=== PATIENT | male | born 1945 | race Caucasian/White ===

== ENCOUNTER → 2018-03-23 | Outpatient (CLI) | payer MEDICARE ==
--- NOTE | 2018-03-23 19:37 | US ---
EXAMINATION TYPE: US venous doppler duplex LE LT DATE OF EXAM: 03/23/2018 7:20 PM COMPARISON: NONE CLINICAL HISTORY: M79.605 pain in left lower limb. Left leg pain. SIDE PERFORMED: Left TECHNIQUE: The lower extremity deep venous system is examined utilizing real time linear array sonog suhas with graded compression, doppler sonography and color-flow sonography. VESSELS IMAGED: External Iliac Vein (EIV) Common Femoral Vein Deep Femoral Vein Greater Saphenous Vein * Femoral Vein Popliteal Vein Small Saphenous Vein * Proximal Calf Veins (* superficial vessels) Left Leg: Negative for DVT Grayscale, color doppler, spectral doppler imaging performed of the deep veins of the left lower extr emity. There is normal flow, compressibility, vascular waveforms. IMPRESSION: No ultrasound evidence for acute DVT in the left lower extremity.
== END | disposition home or self-care (01) ==
LOC: RADUSMAIN 18:52
PROVIDERS: ATTEND Family Medicine
DX: M79.605 Pain in left leg (principal)

== ENCOUNTER 2021-09-09 03:56 | Observation (INO) | payer MEDICARE ==
--- NOTE | 2021-09-09 05:01 | XR ---
EXAMINATION TYPE: XR pelvis AP view DATE OF EXAM: 09/09/2021 COMPARISON: NONE HISTORY: Foreign body TECHNIQUE: Single view FINDINGS: There is a thin long metal wire projects over the penis and scrotum. There is an arrowhead-shaped 3.7 cm foreign body projected over the penile urethra. Proximal femurs and hip joints are intact. There is narrowing of the left hip joint space. IMPRESSION: There is a wire foreign body projected over the penis and scrotum. There is arrow head me tallic foreign body projected over the penis.
[2021-09-09] MEDS ORDERED: MORPHINE SULFATE 4 MG/ML SYRINGE IV PRN (06:12)
[2021-09-09] MEDS ORDERED: NALOXONE 0.4 MG/ML 1 ML VIAL IV PRN (06:12)
[2021-09-09] MEDS: SODIUM CHLORIDE 0.9% 1,000 ML IV SCH ×2 (06:28→20:40)
--- NOTE | 2021-09-09 08:21 | ED ---
Male Urogenital HPI - General Chief complaint: Urogenital Stated complaint: Foreign Object in Penis Time Seen by Provider: 09/09/21 04:01 Source: patient Mode of arrival: ambulatory - History of Present Illness Initial comments: This patient is a 76-year-old man who presents to have evaluation for foreign body in the urethra. The patient states that he had placed a saw blade into his urethra and then was unable to retrieve it. States that this occurred probably about 6 hours prior to his arrival here. He states that he did try to retrieve a couple times and then when not able to he presented here. Complaint: other -: hour(s) Location: penis Radiation: none Severity: mild Quality: sharp Improves with: none Worsens with: none - Related Data Home Medications Medication Instructions Recorded Confirmed Artificial Tears-Hypromellose 2 drops BOTH EYES QID PRN 09/09/21 09/09/21 [Artificial Tear Drops] Aspirin EC [Ecotrin Low Dose] 81 mg PO DAILY 09/09/21 09/09/21 Baclofen [Lioresal] 10 mg PO BID PRN 09/09/21 09/09/21 Bimatoprost [Lumigan .01% Ophth 1 drop BOTH EYES HS 09/09/21 09/09/21 Soln] Brimonidine Tartrate [Alphagan P 2 drops BOTH EYES Q8H 09/09/21 09/09/21 0.1% Ophth Soln] Fish Oil/Dha/Epa [Fish Oil 1,200 1 cap PO DAILY 09/09/21 09/09/21 mg Fish Oil] Glucosamine Sulfate 1,500 mg PO DAILY 09/09/21 09/09/21 Ketoconazole 2% Shampoo [Nizoral] 1 applic TOPICAL Q72H PRN 09/09/21 09/09/21 Multivitamins, Thera [Multivitamin 1 tab PO DAILY 09/09/21 09/09/21 (formulary)] Nitroglycerin Sl Tabs [Nitrostat] 0.4 mg SL Q5M PRN 09/09/21 09/09/21 Omeprazole 20 mg PO DAILY 09/09/21 09/09/21 Pravastatin Sodium [Pravachol] 40 mg PO HS 09/09/21 09/09/21 Turmeric Root Extract [Turmeric] 500 mg PO DAILY 09/09/21 09/09/21 buPROPion HCL [Wellbutrin XL] 300 mg PO DAILY 09/09/21 09/09/21 clonazePAM [KlonoPIN] 0.5 mg PO HS 09/09/21 09/09/21 Allergies Allergy/AdvReac Type Severity Reaction Status Date / Time acetaminophen AdvReac Rash/Hives Verified 09/09/21 09:10 [From Tylenol-Codeine #3] codeine AdvReac Rash/Hives Verified 09/09/21 09:10 [From Tylenol-Codeine #3] Review of Systems ROS Statement: Those systems with pertinent positive or pertinent negative responses have been documented in the HPI. ROS Other: All systems not noted in ROS Statement are negative. Constitutional: Denies: fever, chills Respiratory: Denies: cough, dyspnea Cardiovascular: Denies: chest pain, palpitations Gastrointestinal: Denies: abdominal pain Genitourinary: Reports: as per HPI. Denies: testicular pain Skin: Denies: rash Past Medical History Past Medical History: CVA/TIA Additional Past Medical History / Comment(s): "narrowing of blood vessels", CVA prior to 2019 History of Any Multi-Drug Resistant Organisms: None Reported Past Surgical History: Coronary Bypass/CABG Additional Past Surgical History / Comment(s): bypass 2012 Past Psychological History: No Psychological Hx Reported Smoking Status: Never smoker Past Alcohol Use History: None Reported Past Drug Use History: None Reported General Exam General appearance: alert, in no apparent distress Head exam: Present: atraumatic, normocephalic Eye exam: Present: normal appearance. Absent: scleral icterus, conjunctival injection ENT exam: Present: normal oropharynx Neck exam: Present: normal inspection Respiratory exam: Present: normal lung sounds bilaterally. Absent: respiratory distress, wheezes, rales, rhonchi, stridor Cardiovascular Exam: Present: regular rate, normal rhythm, normal heart sounds. Absent: systolic murmur, diastolic murmur, rubs, gallop GI/Abdominal exam: Present: soft. Absent: distended, tenderness, guarding, rebound exam: Present: other (Inspection does reveal that there is some laceration to the urethral meatus. No active bleeding.) Extremities exam: Present: normal inspection. Absent: pedal edema Skin exam: Present: warm, dry, intact, normal color. Absent: rash Course Vital Signs 09/09/21 09/09/21 04:06 07:29 Temperature 97.8 F 98.1 F Pulse Rate 89 76 Respiratory 18 18 Rate Blood Pressure 149/80 136/84 O2 Sat by Pulse 98 96 Oximetry Disposition Clinical Impression: Foreign body in urethra Disposition: ADMITTED IP TO THIS HOSP Condition: Fair
[2021-09-09] MEDS: ONDANSETRON 4 MG/2 ML VIAL IVP PRN ×2 (11:04→11:14)
[2021-09-09] MEDS ORDERED: DEXAMETHASONE SOD PHOSPHATE 4 MG/ML 1 ML VIAL IV ONE ×2 (11:04→11:14)
--- NOTE | 2021-09-09 11:09 | P.GSHP ---
History of Present Illness H&P Date: 09/09/21 Chief Complaint: Foreign body in the urethra this is a 76-year-old male past medical history significant for prostate cancer, treated with robotic prostatectomy in the past. He presented to the ER after having a saw blade stuck in his urethra. He attempted to remove it but was unsuccessful. Denies any voiding problems or gross hematuria. Has been able to void since the incident without any difficulties. He underwent an x-ray that confirmed that the saw blade was within the urethra. Of note he does have history of a previous glans injury, and on exam the glans is completely incised in half - Constitutional Constitutional: Denies chills, Denies fever - EENT Ears, nose, mouth and throat: Denies headache, Denies sore throat - Cardiovascular Cardiovascular: Denies chest pain, Denies shortness of breath - Respiratory Respiratory: Denies cough, Denies 7 - Gastrointestinal Gastrointestinal: Denies abdominal pain, Denies diarrhea, Denies nausea, Denies vomiting - Genitourinary (Female) Genitourinary: Denies dysuria, Denies hematuria - Musculoskeletal Musculoskeletal: Denies myalgias Past Medical History Past Medical History: CVA/TIA Additional Past Medical History / Comment(s): "narrowing of blood vessels", CVA prior to 2019 History of Any Multi-Drug Resistant Organisms: None Reported Past Surgical History: Coronary Bypass/CABG Additional Past Surgical History / Comment(s): bypass 2011 Past Psychological History: No Psychological Hx Reported Smoking Status: Never smoker Past Alcohol Use History: None Reported Past Drug Use History: None Reported Medications and Allergies Home Medications Medication Instructions Recorded Confirmed Type Artificial Tears-Hypromellose 2 drops BOTH EYES QID PRN 09/09/21 09/09/21 History [Artificial Tear Drops] Aspirin EC [Ecotrin Low Dose] 81 mg PO DAILY 09/09/21 09/09/21 History Baclofen [Lioresal] 10 mg PO BID PRN 09/09/21 09/09/21 History Bimatoprost [Lumigan .01% Ophth 1 drop BOTH EYES HS 09/09/21 09/09/21 History Soln] Brimonidine Tartrate [Alphagan P 2 drops BOTH EYES Q8H 09/09/21 09/09/21 History 0.1% Ophth Soln] Fish Oil/Dha/Epa [Fish Oil 1,200 1 cap PO DAILY 10/17/21 10/17/21 History mg Fish Oil] Glucosamine Sulfate 1,500 mg PO DAILY 09/09/21 09/09/21 History Ketoconazole 2% Shampoo [Nizoral] 1 applic TOPICAL Q72H PRN 09/09/21 09/09/21 History Multivitamins, Thera [Multivitamin 1 tab PO DAILY 09/09/21 09/09/21 History (formulary)] Nitroglycerin Sl Tabs [Nitrostat] 0.4 mg SL Q5M PRN 09/09/21 09/09/21 History Omeprazole 20 mg PO DAILY 09/09/21 09/09/21 History Pravastatin Sodium [Pravachol] 40 mg PO HS 09/09/21 09/09/21 History Turmeric Root Extract [Turmeric] 500 mg PO DAILY 09/09/21 09/09/21 History buPROPion HCL [Wellbutrin XL] 300 mg PO DAILY 09/09/21 09/09/21 History clonazePAM [KlonoPIN] 0.5 mg PO HS 09/09/21 09/09/21 History Allergies Allergy/AdvReac Type Severity Reaction Status Date / Time acetaminophen AdvReac Rash/Hives Verified 09/09/21 09:10 [From Tylenol-Codeine #3] codeine AdvReac Rash/Hives Verified 09/09/21 09:10 [From Tylenol-Codeine #3] Surgical - Exam Vital Signs Temp Pulse Resp BP Pulse Ox 97.8 F 89 18 149/80 98 09/09/21 04:06 09/09/21 04:06 09/09/21 04:06 09/09/21 04:06 09/09/21 04:06 - General no distress, no pain - Eyes PERRL, normal ocular movement - ENT normal nares, normal mucosa - Respiratory normal expansion, normal respiratory effort - Abdomen Abdomen: soft, non tender - Genitourinary Patient was completely incised in half, it was difficult to identify the urethral meatus, fibrotic tissue along the dorsal end of the glans. Unable to palpate the blade along the penile urethra - Psychiatric oriented to time, oriented to person, oriented to place Assessment and Plan Assessment: 76-year-old male with a foreign body stuck in the urethra. Discussed with him we'll plan on going to the OR with cystoscopy and attempted removal of the foreign body Discussed with him the risk which includes but not limited to bleeding, infection, injury to the urethera, discussed potential of prolonged catheterization. Discussed the potential of needing to perform a urethroplasty if Not able to retrieve the blade with the cystoscope. Discussed if the blade has been dislodged into the bladder, and if unable to remove the blade the potential of performing a cystotomy. Discussed the risk in detail with him. He understood all the risk and agreed to proceed. Time with Patient: Greater than 30
[2021-09-09] MEDS ORDERED: NEOSTIGMINE 1 MG/ML 10 ML VIAL ONE (11:13)
[2021-09-09] MEDS ORDERED: PROPOFOL 10 MG/ML 20 ML VIAL IV ONE (11:13)
[2021-09-09] MEDS ORDERED: fentaNYL (PF) 50 MCG/ML 2 ML AMP ONE (11:13)
[2021-09-09] MEDS ORDERED: IV FLUID CONTINUATION 600 ML IV ONE (11:13)
[2021-09-09] MEDS ORDERED: SUCCINYLCHOLINE CHLORIDE 100 MG/5 ML SYR IV ONE (11:13)
[2021-09-09] MEDS ORDERED: MIDAZOLAM 2 MG/2 ML VIAL ONE (11:13)
[2021-09-09] MEDS ORDERED: GLYCOPYRROLATE 0.2 MG/ML 2 ML VIAL ONE (11:13)
[2021-09-09] MEDS ORDERED: LIDOCAINE 1% INJ 10MG/ML (20 ML MDV) ONE (11:13)
--- NOTE | 2021-09-09 11:46 | P.OP ---
Date of Procedure: 09/09/21 Preoperative Diagnosis: foreign body in the urethra Postoperative Diagnosis: same Procedure(s) Performed: Cystoscopy, removal of foreign body from the urethra Implants: None Anesthesia: JACLYNA Surgeon: Jose C Bravo Estimated Blood Loss (ml): 0 Pathology: none sent Condition: stable Disposition: PACU Indications for Procedure: 76-year-old male with a foreign body stuck in the urethra. Discussed with him we'll plan on going to the OR with cystoscopy and attempted removal of the foreign body Discussed with him the risk which includes but not limited to bleeding, infection, injury to the urethera, discussed potential of prolonged catheterization. Discussed the potential of needing to perform a urethroplasty if Not able to retrieve the blade with the cystoscope. Discussed if the blade has been dislodged into the bladder, and if unable to remove the blade the potential of performing a cystotomy. Discussed the risk in detail with him. He understood all the risk and agreed to proceed. Description of Procedure: Patient was brought to the operating room, general anesthesia was induced. He was prepped and draped in sterile fashion and placed in dorsal lithotomy position. Cystoscopy fitted with a 22-Romanian sheath was inserted per urethra. The blade was visualized in the bulbar urethra, using the stent grasper the blade was grasped and removed intact. At this time the cystoscope was reinserted and a complete uretheroscopy and a cystoscopy was performed which showed no additional foreign bodies within the bladder or the urethra, there was no evidence of injury to the urethra. The bladder was emptied at the end of the case. Patient tolerated the procedure well was taken to PACU in stable condition
[2021-09-09] MEDS ORDERED: ARTIFICIAL TEARS-HYPROMELLOSE DROPS 15 ML BTL BOTH EYES PRN (16:40)
[2021-09-09] MEDS ORDERED: BACLOFEN 10 MG TAB PO PRN (16:40)
[2021-09-09] MEDS ORDERED: clonazePAM 0.5 MG TAB PO SCH (21:00)
[2021-09-09] MEDS ORDERED: PRAVASTATIN SODIUM 40 MG TAB PO SCH (21:00)
[2021-09-09] MEDS ORDERED: LATANOPROST 0.005% OPHTH DROPS 2.5 ML BTL BOTH EYES SCH (21:00)
[2021-09-09] MEDS: BRIMONIDINE TARTRATE 0.2% DROPS 5 ML BTL BOTH EYES SCH (22:10)
[2021-09-10] MEDS ORDERED: PANTOPRAZOLE 40 MG TABLET PO SCH (07:30)
[2021-09-10] MEDS: BRIMONIDINE TARTRATE 0.2% DROPS 5 ML BTL BOTH EYES SCH ×2 (08:30→14:52)
[2021-09-10] MEDS: SODIUM CHLORIDE 0.9% 1,000 ML IV SCH (08:34)
[2021-09-10] MEDS ORDERED: buPROPion XL 300 MG TAB.ER.24H PO SCH (09:00)
[2021-09-10] MEDS ORDERED: MULTIVITAMINS, THERA 1 EACH TAB PO SCH (09:00)
[2021-09-10 10:09] VITALS: RESP 18
[2021-09-10 15:50] VITALS: BP 100/57; PULSE 74; TEMP 98.1
--- NOTE | 2021-09-13 16:03 | P.DS ---
Providers Date of admission: 09/09/21 06:12 Attending physician: Jose C Bravo MD Primary care physician: Physician Nonstaff Hospital Course: 76-year-old male admitted to the hospital on September 09, for a foreign body within the urethra. He was taken to the OR September 09 for cystoscopy and retrieval of foreign body in the urethra. Please see op note dated 09/09/21 for surgery details. He was admitted to the hospital postoperatively. He was discharged home on postoperative day #1. At time of discharge she was tolerating a diet, ambulating, voiding without any issues Patient Condition at Discharge: Fair Plan - Discharge Summary Discharge Rx Participant: No New Discharge Prescriptions: New Sulfamethox-Tmp 800-160Mg [Bactrim DS 800-160 mg] 1 tab PO Q12HR #10 tab No Action Baclofen [Lioresal] 10 mg PO BID PRN PRN Reason: Muscle Spasm Turmeric Root Extract [Turmeric] 500 mg PO DAILY Pravastatin Sodium [Pravachol] 40 mg PO HS Aspirin EC [Ecotrin Low Dose] 81 mg PO DAILY Multivitamins, Thera [Multivitamin (formulary)] 1 tab PO DAILY Glucosamine Sulfate 1,500 mg PO DAILY Fish Oil/Dha/Epa [Fish Oil 1,200 mg Fish Oil] 1 cap PO DAILY Ketoconazole 2% Shampoo [Nizoral] 1 applic TOPICAL Q72H PRN PRN Reason: SCALP IRRITATION Omeprazole 20 mg PO DAILY Nitroglycerin Sl Tabs [Nitrostat] 0.4 mg SL Q5M PRN PRN Reason: Chest Pain Bimatoprost [Lumigan .01% Ophth Soln] 1 drop BOTH EYES HS clonazePAM [KlonoPIN] 0.5 mg PO HS buPROPion HCL [Wellbutrin XL] 300 mg PO DAILY Brimonidine Tartrate [Alphagan P 0.1% Ophth Soln] 2 drops BOTH EYES Q8H Artificial Tears-Hypromellose [Artificial Tear Drops] 2 drops BOTH EYES QID PRN PRN Reason: Dry Eye(S) Discharge Medication List Artificial Tears-Hypromellose [Artificial Tear Drops] 2 drops BOTH EYES QID PRN 09/09/21 [History] Aspirin EC [Ecotrin Low Dose] 81 mg PO DAILY 09/09/21 [History] Baclofen [Lioresal] 10 mg PO BID PRN 09/09/21 [History] Bimatoprost [Lumigan .01% Ophth Soln] 1 drop BOTH EYES HS 09/09/21 [History] Brimonidine Tartrate [Alphagan P 0.1% Ophth Soln] 2 drops BOTH EYES Q8H 09/09/21 [History] Fish Oil/Dha/Epa [Fish Oil 1,200 mg Fish Oil] 1 cap PO DAILY 09/09/21 [History] Glucosamine Sulfate 1,500 mg PO DAILY 09/09/21 [History] Ketoconazole 2% Shampoo [Nizoral] 1 applic TOPICAL Q72H PRN 09/09/21 [History] Multivitamins, Thera [Multivitamin (formulary)] 1 tab PO DAILY 09/09/21 [History] Nitroglycerin Sl Tabs [Nitrostat] 0.4 mg SL Q5M PRN 09/09/21 [History] Omeprazole 20 mg PO DAILY 09/09/21 [History] Pravastatin Sodium [Pravachol] 40 mg PO HS 09/09/21 [History] Turmeric Root Extract [Turmeric] 500 mg PO DAILY 09/09/21 [History] buPROPion HCL [Wellbutrin XL] 300 mg PO DAILY 09/09/21 [History] clonazePAM [KlonoPIN] 0.5 mg PO HS 09/09/21 [History] Sulfamethox-Tmp 800-160Mg [Bactrim DS 800-160 mg] 1 tab PO Q12HR #10 tab 09/10/21 [Rx] Follow up Appointment(s)/Referral(s): Jose C Bravo MD [STAFF PHYSICIAN] - As Needed Nonstaff,Physician [Primary Care Provider] - 1 Week Patient Instructions/Handouts: Cystoscopy (DC) Activity/Diet/Wound Care/Special Instructions: It's normal to have blood in the urine increase fluid intake
== END 2021-09-10 15:56 ==
LOC: EC 03:56 → 6NMEDSUR 06:12
PROVIDERS: ADMIT Urology; ATTEND Urology
DX: T19.0XXA Foreign body in urethra, initial encounter (principal); X58.XXXA Exposure to other specified factors, initial encounter; Z20.822 Contact with and (suspected) exposure to COVID-19; Y92.9 Unspecified place or not applicable; Z79.82 Long term (current) use of aspirin; Z79.899 Other long term (current) drug therapy; Z88.6 Allergy status to analgesic agent; Z88.5 Allergy status to narcotic agent; Z86.73 Personal history of transient ischemic attack (TIA), and cerebral infarction without residual deficits; Z85.46 Personal history of malignant neoplasm of prostate; Z90.79 Acquired absence of other genital organ(s); Z95.1 Presence of aortocoronary bypass graft; Z87.828 Personal history of other (healed) physical injury and trauma
CPT/HCPCS: 52310; 99285; 87635; 72170; G0378 ×2; J2250; J1100; J2710; J2405; J2001; J3010; J0330; J2704

== ENCOUNTER 2023-05-16 22:19 | Emergency (ER) | payer MEDICARE ==
[2023-05-16 22:27] VITALS: RESP 20
[2023-05-16 23:17] LABS: Basophils % (A) 0 %; Eosinophils # (A) 0.1 k/uL (0-0.7); Eosinophils % (A) 2 %; HCT 37.5 % (39.0-53.0); HGB 12.3 gm/dL (13.0-17.5); Lymphocytes # (A) 2.3 k/uL (1.0-4.8); Lymphocytes % (A) 38 %; MCH 29.8 pg (25.0-35.0); MCHC 32.9 g/dL (31.0-37.0); MCV 90.7 fL (80.0-100.0); Monocytes # (A) 0.4 k/uL (0-1.0); Monocytes % (A) 7 %; Neutrophils % (A) 49 %; Platelet Count 234 k/uL (150-450); RBC 4.14 m/uL (4.30-5.90); RDW 14.7 % (11.5-15.5); WBC 6.1 k/uL (3.8-10.6)
--- NOTE | 2023-05-16 23:18 | ED ---
General Adult HPI - General Chief complaint: Recheck/Abnormal Lab/Rx Stated complaint: Parasites Time Seen by Provider: 05/16/23 22:28 Source: patient, RN notes reviewed Mode of arrival: ambulatory Limitations: no limitations - History of Present Illness Initial comments: This is a pleasant 78-year-old male presents to the emergency department concerned about the possibility of parasitic infection. Patient states for about one year he has been getting recurrent nosebleeds. Patient saw his primary care physician in [place] and states that he was evaluated. He was told he had a dry nose. He was given an ointment to use. [facility] could use the ointment he is discharged that he blew out of his nose. Patient then proceeded to look at this under microscope. Patient concerned that there may be parasites. He states he saw tiny structures that appear to be "snails without their shells." Patient states that he can also see tiny antennae and some spikes off of the structures. Patient concerned about parasitic infection. Patient has apparently seen 3 year nose and throat doctors as well as had 2 previous ER visits for this same complaint. Patient also states that he had a stool study done for ova and parasites which did not show any abnormality. This actually concerned the patient more because he is "wondering where they are going." Patient denies any fever. Denies any chest pain or shortness of breath. Patient states she did have a spontaneous nosebleed earlier today from the right side of his nose. - Related Data Home Medications Medication Instructions Recorded Confirmed Artificial Tears-Hypromellose 2 drops BOTH EYES QID PRN 09/09/21 09/09/21 [Artificial Tear Drops] Aspirin EC [Ecotrin Low Dose] 81 mg PO DAILY 09/09/21 09/09/21 Baclofen [Lioresal] 10 mg PO BID PRN 09/09/21 09/09/21 Bimatoprost [Lumigan .01% Ophth 1 drop BOTH EYES HS 09/09/21 09/09/21 Soln] Brimonidine Tartrate [Alphagan P 2 drops BOTH EYES Q8H 09/09/21 09/09/21 0.1% Ophth Soln] Fish Oil/Dha/Epa [Fish Oil 1,200 1 cap PO DAILY 09/09/21 09/09/21 mg Fish Oil] Glucosamine Sulfate 1,500 mg PO DAILY 09/09/21 09/09/21 Ketoconazole 2% Shampoo [Nizoral] 1 applic TOPICAL Q72H PRN 09/09/21 09/09/21 Multivitamins, Thera [Multivitamin 1 tab PO DAILY 09/09/21 09/09/21 (formulary)] Nitroglycerin Sl Tabs [Nitrostat] 0.4 mg SL Q5M PRN 09/09/21 09/09/21 Omeprazole 20 mg PO DAILY 09/09/21 09/09/21 Pravastatin Sodium [Pravachol] 40 mg PO HS 09/09/21 09/09/21 Turmeric Root Extract [Turmeric] 500 mg PO DAILY 09/09/21 09/09/21 buPROPion HCL [Wellbutrin XL] 300 mg PO DAILY 09/09/21 09/09/21 clonazePAM [KlonoPIN] 0.5 mg PO HS 09/09/21 09/09/21 Previous Rx's Medication Instructions Recorded Sulfamethox-Tmp 800-160Mg [Bactrim 1 tab PO Q12HR #10 tab 09/10/21 DS 800-160 mg] Allergies Allergy/AdvReac Type Severity Reaction Status Date / Time acetaminophen AdvReac Rash/Hives Verified 05/16/23 22:27 [From Tylenol-Codeine #3] codeine AdvReac Rash/Hives Verified 05/16/23 22:27 [From Tylenol-Codeine #3] Review of Systems ROS Statement: Those systems with pertinent positive or pertinent negative responses have been documented in the HPI. ROS Other: All systems not noted in ROS Statement are negative. Past Medical History Past Medical History: CVA/TIA Additional Past Medical History / Comment(s): "narrowing of blood vessels", CVA prior to 2019 History of Any Multi-Drug Resistant Organisms: None Reported Past Surgical History: Coronary Bypass/CABG Additional Past Surgical History / Comment(s): bypass 2011 Past Psychological History: No Psychological Hx Reported Smoking Status: Never smoker Past Alcohol Use History: None Reported Past Drug Use History: None Reported General Exam - General Exam Comments Initial Comments: Patient does not appear to be ill or toxic. Vital signs stable, afebrile. Patient in no distress. Cranial nerves II through XII grossly intact. Patient is alert and oriented 4. Limitations: no limitations General appearance: alert, in no apparent distress Head exam: Present: atraumatic, normocephalic, normal inspection Eye exam: Present: normal appearance, PERRL, EOMI. Absent: scleral icterus, conjunctival injection, periorbital swelling ENT exam: Present: normal exam, normal oropharynx, mucous membranes dry, mucous membranes moist, TM's normal bilaterally, normal external ear exam, other (Evidence of recent right-sided epistaxis to the area of Kiesselbach's plexus. No current bleeding. No evidence of purulent nasal discharge.) Neck exam: Present: normal inspection, full ROM. Absent: tenderness, meningismus, lymphadenopathy Respiratory exam: Present: normal lung sounds bilaterally. Absent: respiratory distress, wheezes, rales, rhonchi, stridor, chest wall tenderness, accessory muscle use Cardiovascular Exam: Present: regular rate, normal rhythm, normal heart sounds. Absent: systolic murmur, diastolic murmur, rubs, gallop, clicks GI/Abdominal exam: Present: soft. Absent: distended Extremities exam: Present: normal inspection, full ROM, normal capillary refill. Absent: tenderness, pedal edema, joint swelling, calf tenderness Back exam: Present: normal inspection Neurological exam: Present: alert, oriented X3, CN II-XII intact Psychiatric exam: Present: normal affect, normal mood. Absent: depressed, agitated Skin exam: Present: warm, dry, intact, normal color. Absent: rash Course Vital Signs 05/16/23 22:21 Temperature 98.8 F Pulse Rate 102 H Respiratory 20 Rate Blood Pressure 141/80 O2 Sat by Pulse 99 Oximetry Medical Decision Making - Medical Decision Making Was pt. sent in by a medical professional or institution? @ -[No] Did you speak to anyone other than the patient for history? @ -Patient only Did you review nursing and triage notes? @ -Agree Were old charts reviewed? @ -No Differential Diagnosis? @ -Epistaxis, sinusitis, does not appear to be consistent with any systemic disease. Patient's epistaxis appears to be consistent with anterior epistaxis which has resolved. Hemostasis obtained prior to arrival. Cernevit a parasitic infection. It sounds as if the patient has had multiple evaluations, to include 3 ENT specialist. I suspect there is no infectious process. 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 This is not an all inclusive list. EKG interpreted by me (3pts min.)? @ -[none] X-rays interpreted by me (1pt min.)? @ -[none] CT interpreted by me (1pt min.)? @ -[none] U/S interpreted by me (1pt. min.)? @ -[none] What testing was considered but not performed? (CT, X-rays, U/S, labs)? Why? @ No other testing was proposed or done/considered What meds were considered but not given? Why? @ -[none] Did you discuss the management of the patient with other professionals? @ -The case was discussed in detail with ED attending physician. Presentation, findings, treatment plan discussed in detail. Did you reconcile home meds? @ -[none] Was smoking cessation discussed for >3mins.? @ -[none] Was critical care preformed (if so, how long)? @ -[none] Were there social determinants of health that impacted care today? How? (Homelessness, low income, unemployed, alcoholism, drug addiction, transportation, low edu. Level, literacy, decrease access to med. care, skilled nursing, rehab)? 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 This certainly with be a barrier to therapy. We'll have the patient follow-up with his regular physician who is actually in [place] although the patient spends 9 months out of the year up in this area. I did give him the name of another primary care physician, Dr. Aldridge. Was there de-escalation of care discussed even if they declined? (Discuss DNR or withdrawal of care, Hospice)? @ -Not applicable What co-morbidities impacted this encounter? (DM, HTN, Smoking, COPD, CAD, Cancer, CVA, Hep., AIDS, mental health diagnosis, sleep apnea, morbid obesity)? @ -Noncontributory Was patient admitted / discharged? @ -Discharged Undiagnosed new problem with uncertain prognosis? @ -No definitive diagnosis other than the epistaxis. Drug Therapy requiring intensive monitoring for toxicity (Heparin, Nitro, Insulin, Cardizem)? @ -[none] Were any procedures done? @ -[none] Diagnosis/symptom? @ -#1 suspected condition not found, patient fixated on the possibility of parasitic infection. 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 Acute, or Chronic, or Acute on Chronic? @ -Chronic Uncomplicated (without systemic symptoms) or Complicated (systemic symptoms)? @ -No systemic symptoms, uncomplicated. Only complicated by the patient's fixation on possibility of parasitic infection. Side effects of treatment? @ -[none] Exacerbation, Progression, or Severe Exacerbation] @ -[no] Poses a threat to life or bodily function? 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 I'm going to have the patient follow-up with his regular physician. Patient in no distress. This is unlikely to pose any threat to bodily function or I did order a CBC as the patient was concerned about this. It did show very mild normocytic anemia. Note that there was no eosinophilia. Results discussed with the patient. Patient was told to return to the ER for any signs or symptoms worsen. Told to return immediately if any other problems arise. All questions answered. Treatment plan discussed. Patient in agreement Every effort has been made to ensure accuracy of this dictation. However, due to the limitations of electronic medical records and dictation devices, errors in charting still occur. - Lab Data Result diagrams: 05/16/23 23:04 Lab Results 05/16/23 Range/Units 23:04 WBC 6.1 (3.8-10.6) k/uL RBC 4.14 L (4.30-5.90) m/uL Hgb 12.3 L (13.0-17.5) gm/dL Hct 37.5 L (39.0-53.0) % MCV 90.7 (80.0-100.0) fL MCH 29.8 (25.0-35.0) pg MCHC 32.9 (31.0-37.0) g/dL RDW 14.7 (11.5-15.5) % Plt Count 234 (150-450) k/uL MPV 9.0 Neutrophils % 49 % Lymphocytes % 38 % Monocytes % 7 % Eosinophils % 2 % Basophils % 0 % Neutrophils # 3.0 (1.3-7.7) k/uL Lymphocytes # 2.3 (1.0-4.8) k/uL Monocytes # 0.4 (0-1.0) k/uL Eosinophils # 0.1 (0-0.7) k/uL Basophils # 0.0 (0-0.2) k/uL Disposition Clinical Impression: Suspected condition not found, Anterior epistaxis, Foreign body in urethra Disposition: HOME SELF-CARE Condition: Good Instructions (If sedation given, give patient instructions): Nosebleed (ED) Additional Instructions: Make a follow-up appointment with your primary care physician or the provided primary care physician. Follow-up with your regular physician as directed. Return to the ER immediately if any symptoms worsen, new symptoms arise, or any other problems develop. Is patient prescribed a controlled substance at d/c from ED?: No Referrals: Ariana Aldridge MD [STAFF PHYSICIAN] - 05/19/23 Time of Disposition: 23:40
[2023-05-17 00:08] VITALS: BP 142/84; PULSE 97; TEMP 98.4
== END 2023-05-17 00:08 | disposition home or self-care (01) ==
LOC: EC 22:19
DX: R04.0 Epistaxis (principal); T19.0XXA Foreign body in urethra, initial encounter; Z86.73 Personal history of transient ischemic attack (TIA), and cerebral infarction without residual deficits; Z88.5 Allergy status to narcotic agent; Z88.6 Allergy status to analgesic agent; Z79.82 Long term (current) use of aspirin; Z79.899 Other long term (current) drug therapy
CPT/HCPCS: 36415; 85025; 99283